=== PATIENT | female | born 1950 | race Caucasian/White ===

== ENCOUNTER 2019-02-21 07:12 | Day surgery (SDC) | payer OTHER ==
[~2019-02-21] VITALS: Ht 167.6 cm; Wt 84.1 kg
[~2019-02-21 07:12] MED LIST: ADVANCED CALCI1 EACH PO; ALEN70 PO; ASCO500 PO; ASPI81EC PO; B-121000 MC2 PO; CARV6.25 PO; COPAXONE; FOLGARD TABLET1 EACH PO; GABA100 PO; OCREVUS300 MG/10 IV; THERA1 EACH PO; TRAM50 PO
--- NOTE | 2019-02-21 12:21 | NUR ---
PT ASSISTED TO ELECTRIC SCOOTER, DRIVES WITH ASSISTANCE INTO RESTROOM. TR BAND REMAINS ON RIGHT WRIST. LEFT VENOUS SITE REMAINS STABLE. WILL CONTINUE TO MONITOR.
--- NOTE | 2019-02-21 13:24 | NUR ---
PT VERBALIZED UNDERSTANDING OF D/C INSTRUCTIONS. R WRIST TR BAND REMOVED, RED CLOTH DOT DRESSING APPLIED. ARM BOARD AND SLING APPLIED FOR SUPPORT TO RIGHT ARM. DISPO PAPERWORK PROVIDED IN [facility]. IV REMOVED FROM LW WITH CATH INTACT, PRESSURE DRESSING APPLIED. PT ABLE TO TRANSFER WITH 1 PERSON SBA INTO ELECTRIC W/C. DRIVES SELF IN W/C OUT TO PRIVATE VEHICLE. SISTER TO DRIVE PT HOME. VSS. RENEN AT TIME OF DISPO. ENCOURAGED TO FOLLOW UP WITH PROVIDER SCHEDULED.
== END 2019-02-21 13:00 | disposition home or self-care (01) ==
LOC: MHTC 07:12
DX: I42.8 Other cardiomyopathies (principal); I27.22 Pulmonary hypertension due to left heart disease; I34.0 Nonrheumatic mitral (valve) insufficiency; I50.9 Heart failure, unspecified; I27.20 Pulmonary hypertension, unspecified
CPT/HCPCS: 93460; 99152; 99153; C1769; C1894; J1644; J2250; J3010; J7030; Q9967